=== PATIENT | female | born 1950 | race Caucasian/White ===

== ENCOUNTER 2023-09-24 13:53 | Outpatient (CLI) | payer MEDICARE ==
[~2023-09-24] VITALS: Ht 162.6 cm; Wt 52.3 kg
[2023-09-24] MEDS ORDERED: Denosumab 60 MG/ML SYRINGE SQ ONE (14:30)
[2023-09-24 14:40] VITALS: BP 153/76; PULSE 66; TEMP 97.6
[2023-09-24] MEDS ORDERED: LIPITOR 10MG10 MG PO (15:18)
[2023-09-24] MEDS ORDERED: SYNTHROID0.075 MG/T PO (15:19)
[2023-09-24] MEDS ORDERED: COREG CR20 MG PO (15:22)
[2023-09-24] MEDS ORDERED: PROLIA60 MG/ML SQ (15:23)
[2023-09-24] MEDS ORDERED: POTASSIUM (15:24)
[2023-09-24] MEDS ORDERED: CALCIUM (15:25)
[2023-09-24] MEDS ORDERED: MULTI VITAMINS1 TAB PO (15:25)
[2023-09-24] MEDS ORDERED: VITAMIN B-12 (15:26)
[2023-09-24] MEDS ORDERED: VITAMIN D (15:26)
[2023-09-24] MEDS ORDERED: VITAMIN C (15:27)
--- NOTE | 2023-09-24 15:31 | NUR ---
PT TOLERATED INJECTION WELL. VS REMAINED WITHIN NORMAL LIMITS. PT [facility]DEP[facility]LY TO [facility]LLOWING DISCHARGE.
== END 2023-09-24 15:32 | disposition home or self-care (01) ==
LOC: EUO 13:53
DX: M81.0 Age-related osteoporosis without current pathological fracture (principal)
CPT/HCPCS: J0897